=== PATIENT | female | born 1955 | race Caucasian/White ===

== ENCOUNTER 2022-06-09 13:13 | Emergency (ER) | payer MEDICARE, MEDICAID ==
[~2022-06-09] VITALS: Ht 165.1 cm; Wt 90.0 kg
[2022-06-09] MEDS ORDERED: IBUPROFEN 600MG TABLET PO STA (14:52)
[2022-06-09 15:07] LABS: BASOPHILS % 0.1 % (0.0-2.0); EOSINOPHILS % 0.2 % (0.0-5.0); HEMATOCRIT. 36.9 % (36.0-48.0); HEMOGLOBIN. 11.9 g/dL (12.0-16.0); LYMPHOCYTES % 10.7 % (20.0-50.0); MEAN CORPUSCULAR HEMOGLOBIN 26.9 pg (28.0-32.0); MEAN CORPUSCULAR VOLUME 83.1 fL (81.0-99.0); MONOCYTES % 6.2 % (2.0-8.0); NEUTROPHILS % 82.8 % (40.0-76.0); PLATELET 287 x1000/uL (130-400); RED BLOOD CELL COUNT 4.44 mill/uL (4.2-5.4); RED CELL DISTRIBUTION WIDTH 13.2 % (11.6-14.6)
[2022-06-09 15:13] LABS: CHLORIDE 95 mEq/L (98-107)
[2022-06-09 15:49] LABS: CLARITY URINE CLOUDY (CLEAR); COLOR URINE YELLOW (YELLOW); KETONES URINE TRACE (NEGATIVE); LEUKOCYTE ESTERASE URINE 1+ (NEGATIVE); NITRITE URINE NEGATIVE (NEGATIVE); OCCULT BLOOD URINE 2+ (NEGATIVE); PROTEIN URINE TRACE (NEGATIVE); SPECIFIC GRAVITY URINE 1.016 (1.005-1.030)
[2022-06-09] MEDS ORDERED: AMOX1TAB16 MT (15:53)
[2022-06-09] MEDS ORDERED: IBUP-2029 MT (15:53)
[2022-06-09] MEDS ORDERED: METR-167 MT (15:53)
[2022-06-09 16:26] VITALS: BP 133/62
== END 2022-06-09 16:28 | disposition home or self-care (01) ==
LOC: ER 13:13
DX: K57.92 Diverticulitis of intestine, part unspecified, without perforation or abscess without bleeding (principal); I10 Essential (primary) hypertension; E78.00 Pure hypercholesterolemia, unspecified
CPT/HCPCS: 36415; 74176; 80053; 81003; 84550; 85025; 99284

== ENCOUNTER 2022-07-08 10:36 | Emergency (ER) | payer BC, MEDICARE ==
[~2022-07-08] VITALS: Ht 157.5 cm; Wt 79.0 kg
[~2022-07-08 10:36] MED LIST: AMOX1TAB16 MT; IBUP-2029 MT; METR-167 MT
[2022-07-08 10:48] VITALS: BP 179/84
[2022-07-08 11:37] LABS: CLARITY URINE CLEAR (CLEAR); COLOR URINE YELLOW (YELLOW); KETONES URINE TRACE (NEGATIVE); LEUKOCYTE ESTERASE URINE TRACE (NEGATIVE); NITRITE URINE NEGATIVE (NEGATIVE); OCCULT BLOOD URINE 1+ (NEGATIVE); PROTEIN URINE NEGATIVE (NEGATIVE); SPECIFIC GRAVITY URINE 1.012 (1.005-1.030); UROBILINOGEN URINE 0.2 E.U./dL (0.2-1.0)
[2022-07-08] MEDS ORDERED: NITR100C MT (11:51)
== END 2022-07-08 12:00 | disposition home or self-care (01) ==
LOC: ER 10:54
DX: N30.00 Acute cystitis without hematuria (principal); I10 Essential (primary) hypertension; E78.00 Pure hypercholesterolemia, unspecified; G47.30 Sleep apnea, unspecified; Z88.5 Allergy status to narcotic agent
CPT/HCPCS: 81003; 99283

== ENCOUNTER 2022-07-13 12:11 | Inpatient (IN) | payer BC, MEDICAID ==
[~2022-07-13] VITALS: Ht 157.5 cm; Wt 82.1 kg
[~2022-07-13 12:11] MED LIST changes: +NITR100C MT
[2022-07-13] MEDS: ACETAMINOPHEN WITH CODEINE 300/30MG TABLET PO STA ×2 (12:52→12:55)
[2022-07-13 13:25] LABS: BASOPHILS % 0.1 % (0.0-2.0); EOSINOPHILS % 0.3 % (0.0-5.0); HEMATOCRIT. 35.8 % (36.0-48.0); HEMOGLOBIN. 11.9 g/dL (12.0-16.0); LYMPHOCYTES % 8.8 % (20.0-50.0); MEAN CORPUSCULAR HEMOGLOBIN 27.2 pg (28.0-32.0); MEAN PLATELET VOLUME 9.1 fl (7.4-10.4); MONOCYTES % 7.5 % (2.0-8.0); NEUTROPHILS % 83.3 % (40.0-76.0); PLATELET 261 x1000/uL (130-400); RED BLOOD CELL COUNT 4.37 mill/uL (4.2-5.4); RED CELL DISTRIBUTION WIDTH 14.2 % (11.6-14.6)
[2022-07-13 13:31] LABS: CHLORIDE 94 mEq/L (98-107)
[2022-07-13] MEDS ORDERED: CEFTRIAXONE 1 G PREMIX 50 ML IV ONE (14:15)
[2022-07-13] MEDS ORDERED: METRONIDAZOLE 500 MG PREMIX 100 ML IV ONE (14:15)
[2022-07-13] MEDS ORDERED: POTASSIUM CHLORIDE 20MEQ TABLET SR PO ONE (16:15)
[2022-07-13] MEDS ORDERED: HYDROCODONE/ACETAMINOPHEN 5/325MG TABLET PO PRN (16:45)
[2022-07-13] MEDS ORDERED: ACETAMINOPHEN 325MG TABLET PO PRN ×2 (16:45)
[2022-07-13] MEDS ORDERED: CLONIDINE 0.1MG TABLET PO PRN (16:45)
[2022-07-13] MEDS ORDERED: LORAZEPAM 0.5MG TABLET PO PRN (16:45)
[2022-07-13] MEDS ORDERED: IPRATROPIUM/ALBUTEROL 0.5-3(2.5)MG/3ML NEB HHN PRN (16:45)
[2022-07-13] MEDS: SODIUM CHLORIDE 0.9% 1,000 ML IV SCH (16:45)
[2022-07-13] MEDS ORDERED: ONDANSETRON HCL 4MG/2ML INJ IV PRN (16:45)
[2022-07-13] MEDS ORDERED: DOCUSATE SODIUM 100MG CAPSULE PO PRN (16:45)
[2022-07-13] MEDS ORDERED: PIPERACILLIN/TAZ 3.375G PREMIX 50 ML IV NR (18:00)
[2022-07-13] MEDS ORDERED: NALOXONE HCL 0.4MG/ML VIAL IV PRN (20:15)
[2022-07-13 23:00] VITALS: BP 147/64
[2022-07-14] MEDS: PIPERACILLIN/TAZOBACTAM 3.375 G in DEXTROSE 5% WATER 50 ML IV SCH ×3 (00:17→16:06)
[2022-07-14] MEDS: SODIUM CHLORIDE 0.9% 1,000 ML IV SCH ×2 (03:23→14:59)
[2022-07-14 07:29] LABS: BASOPHILS % 0.2 % (0.0-2.0); EOSINOPHILS % 0.6 % (0.0-5.0); HEMATOCRIT. 34.3 % (36.0-48.0); HEMOGLOBIN. 11.1 g/dL (12.0-16.0); LYMPHOCYTES % 14.2 % (20.0-50.0); MEAN CORPUSCULAR HEMOGLOBIN 26.7 pg (28.0-32.0); MEAN CORPUSCULAR VOLUME 82.3 fL (81.0-99.0); MEAN PLATELET VOLUME 9.1 fl (7.4-10.4); PLATELET 272 x1000/uL (130-400); RED BLOOD CELL COUNT 4.17 mill/uL (4.2-5.4); RED CELL DISTRIBUTION WIDTH 14.1 % (11.6-14.6)
[2022-07-14 08:00] VITALS: BP 114/44
[2022-07-14 16:00] VITALS: BP 145/61
[2022-07-14] MEDS ORDERED: HYDR25TA PO (19:48)
[2022-07-14] MEDS ORDERED: AMLO10TA4 MT (19:48)
[2022-07-14] MEDS ORDERED: LOSA100T32 MT (19:48)
[2022-07-14] MEDS ORDERED: ATOR20TA PO (19:48)
[2022-07-14] MEDS ORDERED: LORA5TAB8 MT (19:49)
[2022-07-14 20:00] VITALS: BP 128/62
[2022-07-15] VITALS: BP 108/61
[2022-07-15] MEDS: PIPERACILLIN/TAZOBACTAM 3.375 G in DEXTROSE 5% WATER 50 ML IV SCH ×4 (00:30→23:28)
[2022-07-15] MEDS: SODIUM CHLORIDE 0.9% 1,000 ML IV SCH ×2 (02:06→13:36)
[2022-07-15 04:00] VITALS: BP 118/54
[2022-07-15 08:00] VITALS: BP 152/69
[2022-07-15] MEDS: ENOXAPARIN 30MG/0.3ML SYR SUBCUT SCH (09:43)
[2022-07-15 12:00] VITALS: BP 134/55
[2022-07-15 16:00] VITALS: BP 149/51
[2022-07-15 20:00] VITALS: BP 133/50
[2022-07-16] VITALS: BP 120/50
[2022-07-16] MEDS: SODIUM CHLORIDE 0.9% 1,000 ML IV SCH ×2 (00:20→12:21)
[2022-07-16 04:00] VITALS: BP 141/50
[2022-07-16] MEDS: PIPERACILLIN/TAZOBACTAM 3.375 G in DEXTROSE 5% WATER 50 ML IV SCH ×2 (06:52→15:06)
[2022-07-16 07:52] LABS: BASOPHILS % 0.5 % (0.0-2.0); EOSINOPHILS % 2.7 % (0.0-5.0); HEMATOCRIT. 32.5 % (36.0-48.0); HEMOGLOBIN. 10.9 g/dL (12.0-16.0); MEAN CORPUSCULAR HEMOGLOBIN 27.5 pg (28.0-32.0); MEAN CORPUSCULAR VOLUME 82.2 fL (81.0-99.0); MEAN PLATELET VOLUME 9.1 fl (7.4-10.4); MONOCYTES % 9.6 % (2.0-8.0); NEUTROPHILS % 61.2 % (40.0-76.0); PLATELET 259 x1000/uL (130-400); RED BLOOD CELL COUNT 3.96 mill/uL (4.2-5.4)
[2022-07-16 08:00] VITALS: BP 154/91
[2022-07-16 08:29] LABS: CHLORIDE 102 mEq/L (98-107)
[2022-07-16] MEDS ORDERED: POTASSIUM CHLORIDE 20MEQ TABLET SR PO NR (09:00)
[2022-07-16] MEDS: ENOXAPARIN 30MG/0.3ML SYR SUBCUT SCH (09:04)
[2022-07-16] MEDS ORDERED: LEVO750T68 MT (10:54)
[2022-07-16] MEDS ORDERED: METR-167 MT (10:54)
[2022-07-16 12:00] VITALS: BP 138/54
[2022-07-16 16:00] VITALS: BP 153/68
[2022-07-16 18:51] VITALS: BP 153/68
== END 2022-07-16 22:18 | disposition home or self-care (01) | DRG 392 ==
LOC: ER 12:11 → 6EST 15:57 → ENRESERV 19:11
PROVIDERS: ADMIT Internal Medicine; ATTEND Internal Medicine
DX: K57.92 Diverticulitis of intestine, part unspecified, without perforation or abscess without bleeding (principal); E87.6 Hypokalemia; D25.9 Leiomyoma of uterus, unspecified; N83.292 Other ovarian cyst, left side; I10 Essential (primary) hypertension; E78.00 Pure hypercholesterolemia, unspecified; R00.1 Bradycardia, unspecified; E78.5 Hyperlipidemia, unspecified; Z80.52 Family history of malignant neoplasm of bladder; Z87.891 Personal history of nicotine dependence; Z88.8 Allergy status to other drugs, medicaments and biological substances; Z79.899 Other long term (current) drug therapy
CPT/HCPCS: 36415; 74176; 76830; 76856; 80048; 80053; 80076; 82248; 85025; 99285; J0696; J1650; J2543; J3490; J7060